=== PATIENT | male | born 1990 | race Caucasian/White ===

== ENCOUNTER 2022-06-27 08:00 | Outpatient (CLI) | payer OTHER, SELFPAY ==
--- NOTE | 2022-06-28 15:41 | WPDPFTINT ---
PFT Procedure Performed PFT Procedure Performed Spirometry w/o Bronchodil PFT Interpretation Spirometry showed normal FVC, normal FEV1 but diminished mid expiratory flow rates and diminished FEV1 to FVC ratio of 58% consistent with obstructive airway disease. No post bronchodilator study was carried out. Impression: Mild obstructive airway disease.
== END 2022-06-27 08:01 | disposition home or self-care (01) ==
LOC: ANHPFT 08:02
PROVIDERS: PCP Family Medicine; Visit Provider Family Medicine
DX: Z77.29 Contact with and (suspected) exposure to other hazardous substances (principal); R94.2 Abnormal results of pulmonary function studies
CPT/HCPCS: 94375